=== PATIENT | female | born 1985 | race Caucasian/White ===

== ENCOUNTER 2022-01-31 12:03 | Emergency (ER) | payer OTHER ==
[~2022-01-31] VITALS: Ht 160 cm; Wt 54.0 kg
[2022-01-31 13:14] LABS: BASOPHILS % 0.2 % (0.0-2.0); EOSINOPHILS % 0.4 % (0.0-5.0); HEMATOCRIT. 41.9 % (36.0-48.0); HEMOGLOBIN. 13.8 g/dL (12.0-16.0); LYMPHOCYTES % 37.6 % (20.0-50.0); MEAN CORPUSCULAR HEMOGLOBIN 27.7 pg (28.0-32.0); MEAN CORPUSCULAR VOLUME 84.1 fL (81.0-99.0); MEAN PLATELET VOLUME 8.5 fl (7.4-10.4); NEUTROPHILS % 56.8 % (40.0-76.0); PLATELET 281 x1000/uL (130-400); RED BLOOD CELL COUNT 4.99 mill/uL (4.2-5.4); RED CELL DISTRIBUTION WIDTH 13.3 % (11.6-14.6)
[2022-01-31 13:22] LABS: CHLORIDE 109 mEq/L (98-107)
[2022-01-31 13:46] LABS: ETHANOL BLOOD < 10 mg/dL
[2022-01-31 14:25] LABS: HCG SCREEN NEGATIVE
[2022-01-31] MEDS ORDERED: KETOROLAC 15MG/ML VIAL IV ONE (16:30)
[2022-01-31 16:44] VITALS: BP 124/73
== END 2022-01-31 16:57 | disposition home or self-care (01) ==
LOC: ER 13:26
DX: R56.9 Unspecified convulsions (principal); R53.1 Weakness; R51.9 Headache, unspecified
CPT/HCPCS: 36415; 70450; 71045; 80053; 80320; 84703; 85025; 93005; 96374; 99285; J1885; G0480